=== PATIENT | male | born 1990 | race Caucasian/White ===

== ENCOUNTER 2017-12-24 16:38 | Emergency (ER) | payer OTHER ==
[~2017-12-24] VITALS: Ht 177.8 cm; Wt 90.7 kg
[2017-12-24 16:50] VITALS: Ht 177.8 cm; Wt 90.7 kg
[2017-12-24 18:46] VITALS: BP 134/78
== END 2017-12-24 18:46 | disposition home or self-care (01) ==
LOC: ED 16:38
DX: S50.812A Abrasion of left forearm, initial encounter (principal); J45.909 Unspecified asthma, uncomplicated; Z88.8 Allergy status to other drugs, medicaments and biological substances; W54.0XXA Bitten by dog, initial encounter; Y93.89 Activity, other specified; Y92.89 Other specified places as the place of occurrence of the external cause; Y99.8 Other external cause status
CPT/HCPCS: J0690; J2001; Q0092

== ENCOUNTER 2017-12-26 11:06 | Inpatient (IN) | payer OTHER ==
[~2017-12-26] VITALS: Ht 177.8 cm; Wt 94.3 kg
[2017-12-26 11:09] VITALS: Ht 177.8 cm; Wt 94.3 kg
[2017-12-26 13:03] LABS: BASOPHIL % 0.3 % (0-2); PLATELET COUNT 196 x10^3mcL (130-400)
[2017-12-26 13:07] LABS: microscopic required? NO
[2017-12-26 13:17] LABS: urine erythrocyte NEGATIVE (NEGATIVE)
[2017-12-26 13:33] LABS: CALCIUM 9.4 mg/dL (8.5-10.1); CARBON DIOXIDE 25.3 mmol/L (21-32); CHLORIDE SERUM 103 mmol/L (98-107); CREATININE SERUM 0.8 mg/dL (0.7-1.3); GFR1 > 60 mL/min; GLUCOSE SERUM 92 mg/dL (74-106); POTASSIUM SERUM 4.2 mmol/L (3.5-5.1); SODIUM SERUM 138 mmol/L (136-145)
[2017-12-26 13:35] LABS: T3 TOTAL 0.84 ng/mL
[2017-12-26 13:44] LABS: ALBUMIN 3.7 g/dL (3.4-5.0); ALKALINE PHOSPHATASE 85 U/L (46-116); ALT/SGPT 14 U/L (16-63); AST/SGOT 18 U/L (15-37); BILIRUBIN TOTAL 0.37 mg/dL (0.20-1.00); C REACTIVE PROTEIN 4.1 mg/dL (<=0.9); TOTAL PROTEIN, SERUM 7.8 g/dL (6.4-8.2)
[2017-12-26 13:50] LABS: CK-MB 0.8 ng/mL (0-3.6); ERYTHROCYTE SED RATE 25 mm/hr (0-15)
[2017-12-26 14:31] LABS: FREE T4 0.76 ng/dL (0.76-1.46); T4(THYROXINE) 5.7 ug/dL (4.7-13.3)
[2017-12-26 15:57] LABS: MAGNESIUM 1.9 mg/dL (1.8-2.4); PHOSPHOROUS 3.1 mg/dL (2.5-4.9)
[2017-12-26 16:05] LABS: CHOLESTEROL/HDL RATIO 2.9
[2017-12-26 17:29] VITALS: BP 139/93
[2017-12-26 18:09] VITALS: BP 143/80
[2017-12-26 20:00] VITALS: BP 125/86
[2017-12-27 05:20] VITALS: BP 117/68
[2017-12-27 06:40] LABS: CALCIUM 8.1 mg/dL (8.5-10.1); CARBON DIOXIDE 25.8 mmol/L (21-32); CHLORIDE SERUM 104 mmol/L (98-107); CREATININE SERUM 0.9 mg/dL (0.7-1.3); GFR1 > 60 mL/min; GLUCOSE SERUM 92 mg/dL (74-106); MAGNESIUM 1.9 mg/dL (1.8-2.4); PHOSPHOROUS 4.2 mg/dL (2.5-4.9); POTASSIUM SERUM 4.1 mmol/L (3.5-5.1); SODIUM SERUM 140 mmol/L (136-145)
[2017-12-27 06:45] LABS: BASOPHIL % 0.5 % (0-2); PLATELET COUNT 182 x10^3mcL (130-400); RED CELL DISTRIBUTION WIDTH 14.1 % (11.5-14.5)
[2017-12-27 09:23] VITALS: BP 134/83
[2017-12-27] MEDS ORDERED: TYL325 PO (11:46)
[2017-12-27] MEDS ORDERED: CLEOCIN HCL150 MG PO ×2 (11:48→12:04)
[2017-12-27 11:52] VITALS: BP 134/83
== END 2017-12-27 12:33 | disposition home or self-care (01) | DRG 604 ==
LOC: ED 11:06 → DU 13:38
PROVIDERS: Internal Medicine; Specialist
DX: S51.852A Open bite of left forearm, initial encounter (principal); N17.0 Acute kidney failure with tubular necrosis; L03.114 Cellulitis of left upper limb; E83.51 Hypocalcemia; W54.0XXA Bitten by dog, initial encounter; Y92.89 Other specified places as the place of occurrence of the external cause
CPT/HCPCS: 83880; 84439; 90714; J2543; J7030; Q0092